=== PATIENT | male | born 1965 | race Caucasian/White ===

== ENCOUNTER → 2018-12-23 | Outpatient (CLI) | payer OTHER ==
[2018-12-23 16:44] LABS: Blood Urea Nitrogen 20 mg/dL (9-20)
--- NOTE | 2018-12-23 22:49 | MR ---
EXAMINATION TYPE: MR lumbar spine wo/w con DATE OF EXAM: 12/23/2018 COMPARISON: NONE HISTORY: Spondylolisthesis, spondylosis, Paresthesia of skin, and history of testicular cancer PER or marissa. Low back pain for several years increasing in severity recently per patient. TECHNIQUE: Multiplanar, multisequence images of the lumbar spine is performed without and with IV contrast, util izing 12 mL intravenous Gadavist FINDINGS: Sagittal images of the lumbar spine show vertebral body heights to appear satisfactory. The re are slight grade 1 retrolisthesis of L3 and L4. There is disc desiccation T12-L1, L1-L2, L3-L4, an d L5-S1 levels. There is moderate disc space narrowing with vacuum disc phenomenon L5-S1 level. There is mild disc space narrowing T12-L1 level. Some multilevel posterior disc herniations are seen on sa gittal images. The conus medullaris is normal in position and signal ending at L1 level. The bone m arrow signal intensity is within normal limits. Mild multilevel anterior spurring is present. No susp icious enhancement is present. Axial images at the T12-L1 level shows mild broad-based disc bulge minimally effacing the anterior th ecal sac, bilateral neural foramina are patent. Axial images at L1-L2 level show mild broad disc bulge minimally effaces the anterior thecal sac, david ateral neural foramina are patent. Axial images at L2-L3 level are felt within normal limits. Axial images at the L3-L4 level show [id number] broad disc bulge minimally effacing the anterio r thecal sac and causing mild bilateral anterior inferior neural foraminal narrowing. Axial images at L4-L5 level are felt within normal limits. Axial images at the L5-S1 level shows mild facet degenerative changes bilaterally. There is central d isc protrusion seen without spinal canal is preserved. Bilateral neural foramina are patent. There are suspected central parapelvic cysts in the left kidney there is suggestion of mild right-ananth ed hydronephrosis. Advise renal ultrasound follow-up to further evaluate. IMPRESSION: 1. Multilevel degenerative changes in the lumbar spine as detailed above most prominent at L3-L4 and L5-S1 levels. 2. Suggestion of left renal parapelvic cysts and mild right-sided hydronephrosis. Advise renal ultras ound follow-up to better evaluate and characterize if this is not known findings.
== END ==
LOC: RADMRIMAIN 16:11
PROVIDERS: ATTEND Physical Medicine & Rehabilitation
DX: M48.061 Spinal stenosis, lumbar region without neurogenic claudication (principal); M47.817 Spondylosis without myelopathy or radiculopathy, lumbosacral region; I10 Essential (primary) hypertension; C62.90 Malignant neoplasm of unspecified testis, unspecified whether descended or undescended
CPT/HCPCS: 82565; 84520; 72158; 36415; A9585

== ENCOUNTER → 2019-01-27 | Outpatient (CLI) | payer OTHER ==
[2019-01-27 17:38] LABS: HCT 42.9 % (39.0-53.0); HGB 14.6 gm/dL (13.0-17.5); MCH 31.1 pg (25.0-35.0); MCHC 34.2 g/dL (31.0-37.0); MCV 91.1 fL (80.0-100.0); Mean Platelet Volume 6.3; Platelet Count 234 k/uL (150-450); RBC 4.71 m/uL (4.30-5.90); RDW 12.4 % (11.5-15.5); WBC 6.5 k/uL (3.8-10.6)
== END | disposition home or self-care (01) ==
LOC: LABWHC1 16:41
PROVIDERS: ATTEND Surgery Vascular Surgery
DX: N13.39 Other hydronephrosis (principal)
CPT/HCPCS: 36415; 84520; 85027

== ENCOUNTER → 2019-08-17 | Outpatient (CLI) | payer OTHER ==
[2019-08-17 16:28] LABS: Appearance,Urine Clear (Clear); Bilirubin,Urine Negative (Negative); Blood,Urine Negative (Negative); Color,Urine Yellow; Glucose,Urine (UA) Negative (Negative); Ketones,Urine Negative (Negative); Leukocyte Esterase,Urine Negative (Negative); Nitrite,Urine Negative (Negative); Protein,Urine Negative (Negative); Specific Gravity,Urine 1.025 (1.001-1.035); Urobilinogen,Urine <2.0 mg/dL (<2.0)
[2019-08-17 17:04] LABS: HCT 42.2 % (39.0-53.0); HGB 14.4 gm/dL (13.0-17.5); MCH 31.4 pg (25.0-35.0); MCHC 34.1 g/dL (31.0-37.0); MCV 91.9 fL (80.0-100.0); Mean Platelet Volume 6.1; Platelet Count 232 k/uL (150-450); RBC 4.59 m/uL (4.30-5.90); RDW 12.3 % (11.5-15.5); WBC 6.7 k/uL (3.8-10.6)
[2019-08-17 23:49] LABS: African American GFR (CKD) 99.8 (60.0-200.0); Albumin 4.4 g/dL (3.80-4.90); Albumin/Globulin Ratio 2.32 (1.60-3.17); Anion Gap 4.1 mmol/L (4.00-12.00); Calcium 9.1 mg/dL (8.7-10.3); Carbon Dioxide 30.9 mmol/L (21.6-31.8); Chol/HDL Ratio 4.32; Globulin 1.9 g/dL (1.6-3.3); Potassium 4.1 mmol/L (3.5-5.5); Total Bilirubin 1.2 mg/dL (0.3-1.2); Total Protein 6.3 g/dL (6.2-8.2)
[2019-08-17 23:58] LABS: T4, Free (Free Thyroxine) 1.2 ng/dL (0.80-1.80)
[2019-08-18 01:51] LABS: Hemoglobin A1C 5.3 % (4.0-6.0)
== END | disposition home or self-care (01) ==
LOC: LABWHC1 15:52
PROVIDERS: ATTEND Physician Assistant
DX: Z00.00 Encounter for general adult medical examination without abnormal findings (principal); R53.83 Other fatigue; Z13.220 Encounter for screening for lipoid disorders; Z83.3 Family history of diabetes mellitus; Z12.5 Encounter for screening for malignant neoplasm of prostate
CPT/HCPCS: 36415; 80053; 80061; 81003; 82306; 83036; 84153; 84439; 84443; 85027

== ENCOUNTER → 2020-03-28 | Day surgery (SDC) | payer OTHER ==
[2020-03-23 16:10] VITALS: BMI 31.6
[~2020-03-28] MED LIST: LACTATED RINGERS 1,000 ML IV SCH; LIDOCAINE 1% (10MG/ML) FOR IV START INTRADERMA ONE; PROPOFOL 10 MG/ML 20 ML VIAL IV ONE
[2020-03-28 09:38] VITALS: TEMP 97.4
--- NOTE | 2020-03-28 10:30 | P.GSHP ---
History of Present Illness H&P Date: 03/28/20 Chief Complaint: elevated Patient here today for colonoscopy. Complains of rectal bleeding. History of rectal bleeding from hemorrhoids in the past. Underwent hemorrhoidectomy. Bleeding is more with activities. History of diverticulitis. Past Medical History Past Medical History: Cancer, Hypertension Additional Past Medical History / Comment(s): HX DIVERTICULITIS, TESTICULAR CANCER (2004), PALPITATIONS., HEMORRHOIDS. History of Any Multi-Drug Resistant Organisms: None Reported Past Surgical History: Hernia Repair Additional Past Surgical History / Comment(s): ORCHIECTOMY, HAND SURGERY, INGUINAL HERNIA AND UMBILICAL HERNIA. Past Anesthesia/Blood Transfusion Reactions: No Reported Reaction Past Psychological History: No Psychological Hx Reported Smoking Status: Never smoker Past Alcohol Use History: Rare Past Drug Use History: None Reported - Past Family History Mother Family Medical History: No Reported History Medications and Allergies Home Medications Medication Instructions Recorded Confirmed Type Aspirin [Adult Low Dose Aspirin EC] 81 mg PO DAILY 03/23/20 03/28/20 History Losartan Potassium [Cozaar] 100 mg PO HS 03/23/20 03/28/20 History Metoprolol 50 tab PO HS 03/23/20 03/28/20 History amLODIPine [Norvasc] 5 mg PO HS 03/23/20 03/28/20 History Hydrochlorothiazide 1 caplet PO DAILY 03/28/20 03/28/20 History Allergies Allergy/AdvReac Type Severity Reaction Status Date / Time amoxicillin Allergy Unknown Unknown Verified 03/28/20 09:33 Sulfa (Sulfonamide Allergy Unknown Unknown Verified 03/28/20 09:33 Antibiotics) Surgical - Exam Vital Signs Temp Pulse Resp BP Pulse Ox 97.4 F L 76 16 120/77 96 03/28/20 09:37 03/28/20 09:37 03/28/20 09:37 03/28/20 09:37 03/28/20 09:37 Physical exam: General: Well-developed, well-nourished HEENT: Normocephalic, sclerae nonicteric Abdomen: Nontender, nondistended Extremities: No edema Neuro: Alert and oriented Assessment and Plan (1) Rectal bleeding Narrative/Plan: Will proceed with colonoscopy and possible hemorrhoidal banding at this time. Risks of bleeding, infection, recurrence reviewed. He understands and wishes to proceed. Current Visit: Yes Status: Acute Code(s): K62.5 - HEMORRHAGE OF ANUS AND RECTUM SNOMED Code(s): 02589888
--- NOTE | 2020-03-28 10:45 | P.PCN ---
Date of Procedure: 03/28/20 Procedure(s) Performed: PREOPERATIVE DIAGNOSIS: Rectal bleeding POSTOPERATIVE DIAGNOSIS: Small internal hemorrhoids, diverticulosis PROCEDURE: Colonoscopy ANESTHESIA: MAC SURGEON: Miguel Diallo M.D. SPECIMENS: None ENDOSCOPIC PROCEDURE: The patient was placed on the endoscopy table in the left decubitus position. The Olympus colonoscope was inserted into the anus and passed under direct visualization to the base of the cecum. The appendiceal orifice was visualized. From that point the scope was slowly withdrawn inspecting all surfaces carefully. There were no neoplastic inflammatory or polypoid lesions throughout the cecum, ascending, transverse, descending, sigmoid and rectum. There was moderate sigmoid diverticulosis noted. Retroflexion of the scope at the anus showed small hemorrhoids. The anoscope was utilized at that time. Small internal hemorrhoids without any evidence of recent or active bleeding was noted. No fissure was seen or fistula. Digital rectal examination was normal. The patient was taken to the recovery room in stable condition per anesthesia guidelines. RECOMMENDATIONS: Increase fiber. Monitor symptoms of bleeding.
[2020-03-28 11:10] VITALS: BP 113/72; PULSE 79; RESP 16
== END ==
LOC: ORWHC2ENDO 09:17
PROVIDERS: ATTEND Surgery
DX: K64.8 Other hemorrhoids (principal); K57.31 Diverticulosis of large intestine without perforation or abscess with bleeding; I10 Essential (primary) hypertension; K21.9 Gastro-esophageal reflux disease without esophagitis; Z87.19 Personal history of other diseases of the digestive system; Z98.890 Other specified postprocedural states; Z85.47 Personal history of malignant neoplasm of testis; Z90.79 Acquired absence of other genital organ(s); Z79.82 Long term (current) use of aspirin; Z79.899 Other long term (current) drug therapy; Z88.0 Allergy status to penicillin; Z88.2 Allergy status to sulfonamides
CPT/HCPCS: 45378; J2704

== ENCOUNTER → 2020-06-20 | Outpatient (CLI) | payer OTHER ==
--- NOTE | 2020-06-20 20:55 | CONS ---
CONSULTATION REASON FOR CONSULTATION: Hypersomnia and poor sleep quality. This is 55-year-old male patient coming in for sleep evaluation with concerns of him having sleep apnea. The patient has a history of hypertension and history of testicular cancer. No other major medical problems or comorbidities. His blood pressure has been difficult to control and currently he is on 3 different blood pressure medications for effective control of his BP. He goes to bed around 10 to 11 p.m. and wakes up at 4:30 a.m. in the morning. He snores and quits breathing as reported by his . He also grinds his teeth. He has occasionally walks in his sleep and he is quite restless in the middle of the night. He wakes up gasping for air. He moves, he snores, he sometimes talks and yells out and he gasps. No recent weight gain or weight loss. He is very tired and sleepy and somnolent during the day. No history of any motor vehicle accidents because of feeling drowsy or sleepy. He was referred to me for sleep apnea evaluation. PAST MEDICAL HISTORY: Hypertension, history of testicular cancer. PAST SURGICAL HISTORY: Past surgical history includes orchiectomy, hernia repair x2 involving groin and umbilicus, bilateral carpal tunnel release, and facial surgery for forehead and nasal injury. DRUG ALLERGIES: AMPICILLIN AND SULFA. OUTPATIENT MEDICATION LIST: Outpatient medication list includes Marguerite aspirin, metoprolol, Norvasc and losartan. SOCIAL HISTORY: Nonsmoker. No history of alcoholism. No history of IV drugs. The patient works injection molding. FAMILY HISTORY: Coronary artery disease and bypass and CVA and pacemaker insertion in his father. Cleft palate in his daughter, who ended up passing away from an underlying congenital syndrome. Mother was healthy. Sister has obstructive sleep apnea. REVIEW OF SYSTEMS: Fourteen-point review of systems was done. Positive findings are all mentioned above in the history of present illness. PHYSICAL EXAMINATION: BP is 129/81, pulse is 74, respirations 16, temperature 98.1. Height is 6 feet 4 inches, weight is 257, and BMI is 31. Neck size is 18-1/4 inches. Montrose score is 17. GENERAL APPEARANCE: Calm, comfortable. No acute distress. HEAD: Atraumatic, normocephalic. NECK: Supple. No JVD. No goiter or neck masses. Mallampati class IV. LUNGS: Diminished; otherwise clear. HEART: Heart sounds are regular rate and rhythm. Normal S1, S2. No S3, S4. No murmurs. ABDOMEN: Soft, nontender. No organomegaly. EXTREMITIES: No edema. No cyanosis or clubbing. NEUROLOGIC: Awake and alert x3. There is no focal neurological deficit. IMPRESSION: 1. Chronic hypersomnia. Montrose score of 17. Rule out underlying obstructive sleep apnea. 2. Hypertension, refractory, currently well controlled on 3 different antihypertensive medications. 3. Loud snoring. 4. Remote history of testicular cancer. PLAN: Proceed with a home sleep study to evaluate this patient for obstructive sleep apnea and decide on treatment accordingly. Will continue to follow. MMODL / IJN: [id number] /
== END | disposition home or self-care (01) ==
LOC: SLEEP 15:20
PROVIDERS: ATTEND Internal Medicine Critical Care Medicine
DX: G47.10 Hypersomnia, unspecified (principal); I10 Essential (primary) hypertension; Z85.47 Personal history of malignant neoplasm of testis
CPT/HCPCS: 99211

== ENCOUNTER → 2020-10-24 | Outpatient (CLI) | payer OTHER ==
--- NOTE | 2020-10-24 12:54 | PN ---
PROGRESS NOTE This is a 55-year-old male patient coming in for a compliance check regarding obstructive sleep apnea. The diagnosis patient having DIAMOND, moderate to severe with an AHI of 26. The patient was given initially a nose mask and later on he was given a full face mask and currently is using a Double Doodskel large size full-face mask. Doing well. He is having issues with the leak. Initially he was having difficulties in tolerating the treatment and currently he is becoming more and more compliant. Based on a 30-day compliance data, the patient has been averaging around 4.7 hours of CPAP use and his CPAP use for more than 4 hours . His average pressure delivered by the machine is at 9.3 cm and the leak is in order of 34 L/minute and his AHI is down to 1.6. His York score used to be 17 and currently is down to 9. He has an APAP at a minimum pressure of 5 and a maximum pressure of 13. REVIEW OF SYSTEMS: Fourteen-point review of system was done and positive findings are mentioned history of present illness. PHYSICAL EXAMINATION: VITAL SIGNS: BP is 153/87, pulse 62, respirations 16, temperature 98.3, saturation 97% on room air. Weight is 264. GENERAL APPEARANCE: Obese, calm, comfortable. HEAD: Atraumatic, normocephalic. NECK: Supple. Mallampati class 4. There is no goiter or neck masses. LUNGS: Clear to auscultation. HEART: Sounds are regular rate and rhythm. Normal S1, S2. No S3, S4. No murmurs. ABDOMEN: Soft, nontender. No organomegaly. EXTREMITIES: No edema. No cyanosis or clubbing. IMPRESSION: 1. Obstructive sleep apnea, moderate severe AHI of 26. 2. Chronic hypersomnia, improved with CPAP therapy. 3. Hypertension. PLAN: 1. Tight blood pressure control. 2. Continue CPAP therapy in the same pressure setting, which is an APAP minimum pressure of 5 and maximum pressure of 13. 3. Offer the patient a DreamWear full-face mask under the nose. 4. Offer the patient climate line. 5. Continue treatment and the patient is benefitting from the treatment and she is expected to be more compliant over the next few months. Treatment is successful. We will continue to follow. MMODL / IJN: [id number] /
== END | disposition home or self-care (01) ==
LOC: SLEEP 10:35
PROVIDERS: ATTEND Internal Medicine Critical Care Medicine
DX: G47.33 Obstructive sleep apnea (adult) (pediatric) (principal); I10 Essential (primary) hypertension; Z99.89 Dependence on other enabling machines and devices

== ENCOUNTER → 2020-12-19 | Outpatient (CLI) | payer OTHER ==
[2020-12-19 10:50] LABS: HCT 43.3 % (39.0-53.0); HGB 14.7 gm/dL (13.0-17.5); MCH 31.4 pg (25.0-35.0); MCV 92.3 fL (80.0-100.0); Mean Platelet Volume 6.4; Platelet Count 239 k/uL (150-450); RBC 4.69 m/uL (4.30-5.90); WBC 6.9 k/uL (3.8-10.6)
[2020-12-19 11:08] LABS: African American GFR (CKD) >90 (>60 ml/min/1.73 sqM); Anion Gap 6 mmol/L; Blood Urea Nitrogen 22 mg/dL (9-20); Calcium 9.4 mg/dL (8.4-10.2); Carbon Dioxide 28 mmol/L (22-30); Chloride 106 mmol/L (98-107); Glucose 123 mg/dL (74-99); Non-African American GFR(CKD) >90 (>60 ml/min/1.73 sqM); Potassium 4.5 mmol/L (3.5-5.1); Sodium 140 mmol/L (137-145)
[2020-12-19 11:22] LABS: T4, Free (Free Thyroxine) 1.15 ng/dL (0.78-2.19)
--- NOTE | 2020-12-19 12:30 | US ---
EXAMINATION TYPE: US renal artery duplex complete DATE OF EXAM: 12/19/2020 COMPARISON: NONE CLINICAL HISTORY: I10 Hypertension. HTN for 2 years MEASUREMENTS: RENAL SIZE: Rt Kidney: 12.8 x 5.9 x 5.5cm Lt Kidney: 13.1 x 6.6 x 5.6cm RESISTANCE INDEX Right: 0.55 Left: 0.64 RA/AO RATIO (< 3.5 ) Right: 2.3 Left: 2.4 RA VELOCITY ( < 180 cm/s) Right: 167.3cm/s Left: 175.2cm/s Technical limitations due to large amount of overlying bowel content. No evidence of renal artery s tenosis as visualized. aorta appears unremarkable. dilated renal pyramids bilateral kidneys. Suboptimal due to overlying bowel gas per technologist. Visualized aorta shows no aneurysm seen throu gh the bifurcation. Kidneys are symmetric and within normal limits in size. Cortical medullary differ entiation maintained. No hydronephrosis. Visualized portion of renal artery show satisfactory velocit y and phasicity. No suspicious elevated velocity or abnormal ratio noted. IMPRESSION: Suboptimal study without hemodynamically significant focal renal artery stenosis clearly identified.
== END ==
LOC: RADUSWWP 08:50
PROVIDERS: ATTEND Internal Medicine Interventional Cardiology
DX: I10 Essential (primary) hypertension (principal)
CPT/HCPCS: 80048; 84439; 84443; 85027; 93975

== ENCOUNTER → 2021-11-29 | Outpatient (CLI) | payer OTHER ==
[2021-11-30 03:05] LABS: T4, Free (Free Thyroxine) 1.26 ng/dL (0.800-1.800)
[2021-11-30 13:13] LABS: C-ANCA <1:20 Titer (<1:20)
== END | disposition home or self-care (01) ==
LOC: LABWHC1 14:22
PROVIDERS: ATTEND Otolaryngology
DX: E03.9 Hypothyroidism, unspecified (principal)
CPT/HCPCS: 36415; 84439; 84443; 86038; 86255; 86376

== ENCOUNTER → 2022-01-24 | Outpatient (CLI) | payer OTHER ==
[2022-01-24 22:45] LABS: Basophils # (A) 0.06 X 10*3/uL (0.00-0.10); Basophils % (A) 1.4 %; Eosinophils # (A) 0.19 X 10*3/uL (0.04-0.35); Eosinophils % (A) 4.4 %; HCT 40.2 % (39.6-50.0); HGB 13.6 g/dL (13.0-17.0); Immature Grans, Automated 0.2 %; Lymphocytes # (A) 1.77 X 10*3/uL (0.90-5.00); Lymphocytes % (A) 40.9 %; MCH 30.9 pg (27.0-32.0); MCHC 33.8 g/dL (32.0-37.0); MCV 91.4 fL (80.0-97.0); Mean Platelet Volume 9.8 fL (9.5-12.2); Monocytes # (A) 0.35 X 10*3/uL (0.20-1.00); Monocytes % (A) 8.1 %; NRBC Per 100 WBC 0 /100 WBCS (0.0-0.0); Neutrophils # (A) 1.95 X 10*3/uL (1.80-7.70); Platelet Count 226 X 10*3/uL (140-440); WBC 4.33 X 10*3/uL (4.50-10.00)
[2022-01-24 23:03] LABS: African American GFR (CKD) 113.1 (60.0-200.0); Albumin 4.1 g/dL (3.8-4.9); Albumin/Globulin Ratio 1.66 (1.60-3.17); BUN/Creat Ratio 18.38 Ratio (12.00-20.00); Blood Urea Nitrogen 16.1 mg/dL (9.0-27.0); Calcium 8.7 mg/dL (8.7-10.3); Carbon Dioxide 21.6 mmol/L (20.0-27.5); Globulin 2.5 g/dL (1.6-3.3); Non-African American GFR(CKD) 97.6 (60.0-200.0); Potassium 3.6 mmol/L (3.5-5.5); T4, Free (Free Thyroxine) 1.34 ng/dL (0.800-1.800); Total Bilirubin 0.3 mg/dL (0.30-1.20); Total Protein 6.6 g/dL (6.2-8.2)
[2022-01-24 23:09] LABS: Thyroid Peroxidase Antibodies 53.7 U/mL (0.0-33.0)
== END | disposition home or self-care (01) ==
LOC: LABWHC1 14:48
PROVIDERS: ATTEND Family Medicine
DX: E06.9 Thyroiditis, unspecified (principal); R53.83 Other fatigue
CPT/HCPCS: 36415; 80053; 82306; 84403; 84432; 84439; 84443; 84481; 85025; 86376

== ENCOUNTER 2022-01-28 14:14 | Inpatient (IN) | payer OTHER ==
[2022-01-28 14:46] LABS: Basophils # (A) 0.1 k/uL (0-0.2); Basophils % (A) 1 %; Eosinophils # (A) 0.2 k/uL (0-0.7); Eosinophils % (A) 3 %; HCT 43.7 % (39.0-53.0); HGB 14.7 gm/dL (13.0-17.5); Lymphocytes # (A) 1.4 k/uL (1.0-4.8); Lymphocytes % (A) 25 %; MCH 31.2 pg (25.0-35.0); MCHC 33.8 g/dL (31.0-37.0); MCV 92.5 fL (80.0-100.0); Monocytes # (A) 0.3 k/uL (0-1.0); Monocytes % (A) 5 %; Neutrophils # (A) 3.5 k/uL (1.3-7.7); Neutrophils % (A) 64 %; Platelet Count 260 k/uL (150-450); RBC 4.72 m/uL (4.30-5.90); RDW 12.2 % (11.5-15.5); WBC 5.5 k/uL (3.8-10.6)
[2022-01-28 15:00] LABS: INR 0.9 (<1.2); Partial Thromboplastin Time 24.2 sec (22.0-30.0); Prothrombin Time 10.4 sec (9.0-12.0)
--- NOTE | 2022-01-28 15:06 | XR ---
EXAMINATION TYPE: XR chest 2V DATE OF EXAM: 01/28/2022 COMPARISON: NONE HISTORY: Pain and fall TECHNIQUE: Frontal and lateral views of the chest are obtained. FINDINGS: Questionable minimal infiltration in the left lower lung zone with linear atelectasis. Unremarkable l ungs otherwise. No sizable pleural effusion or definite pneumothorax. No cardiomegaly. No gross aggressive bone lesio n. IMPRESSION: As above.
[2022-01-28 15:08] LABS: Albumin 4.2 g/dL (3.5-5.0); Calcium 8.9 mg/dL (8.4-10.2); Magnesium 1.8 mg/dL (1.6-2.3); Potassium 3.9 mmol/L (3.5-5.1); Total Bilirubin 0.9 mg/dL (0.2-1.3); Total Protein 7.1 g/dL (6.3-8.2)
--- NOTE | 2022-01-28 16:03 | ED ---
General Adult HPI - General Chief complaint: Chest Pain Stated complaint: Chest pain/left arm numbness/sob Time Seen by Provider: 01/28/22 15:45 Source: patient, RN notes reviewed, old records reviewed Mode of arrival: wheelchair Limitations: no limitations - History of Present Illness Initial comments: This is a 56-year-old male who presents to the emergency department with past history of a celiac artery dissection years ago. Patient states today he was at home and he had the feeling he might pass out so he went down to his knees and started because coming diaphoretic and had chest tightness. Patient thought his heart might is stopped he was so close to passing out. Patient didn't complain difficulty breathing or shortness of breath. Patient denies headache patient denies any numbness weakness. Patient denies any fever chills or cough patient denies abdominal pain patient denies nausea vomiting diarrhea. - Related Data Home Medications Medication Instructions Recorded Confirmed Aspirin [Adult Low Dose Aspirin EC] 81 mg PO DAILY 03/23/20 03/28/20 Losartan Potassium [Cozaar] 100 mg PO HS 03/23/20 03/28/20 Metoprolol 50 tab PO HS 03/23/20 03/28/20 amLODIPine [Norvasc] 5 mg PO HS 03/23/20 03/28/20 Hydrochlorothiazide 1 caplet PO DAILY 03/28/20 03/28/20 [hydroCHLOROthiazide] Allergies Allergy/AdvReac Type Severity Reaction Status Date / Time amoxicillin Allergy Unknown Unknown Verified 01/28/22 14:22 Sulfa (Sulfonamide Allergy Unknown Unknown Verified 01/28/22 14:22 Antibiotics) Review of Systems ROS Statement: Those systems with pertinent positive or pertinent negative responses have been documented in the HPI. ROS Other: All systems not noted in ROS Statement are negative. Past Medical History Past Medical History: Cancer, Hypertension Additional Past Medical History / Comment(s): HX DIVERTICULITIS, TESTICULAR CANCER (2004), PALPITATIONS., HEMORRHOIDS. CELIAC ARTERY DISSECTION History of Any Multi-Drug Resistant Organisms: None Reported Past Surgical History: Hernia Repair Additional Past Surgical History / Comment(s): ORCHIECTOMY, HAND SURGERY, INGUINAL HERNIA AND UMBILICAL HERNIA. Past Anesthesia/Blood Transfusion Reactions: No Reported Reaction Past Psychological History: No Psychological Hx Reported Smoking Status: Never smoker Past Alcohol Use History: Rare Past Drug Use History: None Reported - Past Family History Mother Family Medical History: No Reported History General Exam - General Exam Comments Initial Comments: GENERAL: Patient is well-developed and well-nourished. Patient is nontoxic and well- hydrated and is in mild to distress. ENT: Neck is soft and supple. No significant lymphadenopathy is noted. Oropharynx is clear. Moist mucous membranes. Neck has full range of motion without eliciting any pain. EYES: The sclera were anicteric and conjunctiva were pink and moist. Extraocular movements were intact and pupils were equal round and reactive to light. Eyelids were unremarkable. PULMONARY: Unlabored respirations. Good breath sounds bilaterally. No audible rales rhonchi or wheezing was noted. CARDIOVASCULAR: There is a regular rate and rhythm without any murmurs gallops or rubs. ABDOMEN: Soft and nontender with normal bowel sounds. SKIN: Skin is clear with no lesions or rashes and otherwise unremarkable. NEUROLOGIC: Patient is alert and oriented x3. Cranial nerves II through XII are grossly intact. Motor and sensory are also intact. Normal speech, volume and content. Symmetrical smile. MUSCULOSKELETAL: Normal extremities with adequate strength and full range of motion. LYMPHATICS: No significant lymphadenopathy is noted PSYCHIATRIC: Normal psychiatric evaluation. Limitations: no limitations Course Vital Signs 01/28/22 01/28/22 14:19 16:03 Temperature 97.9 F Pulse Rate 95 81 Respiratory 18 18 Rate Blood Pressure 114/76 128/79 O2 Sat by Pulse 95 96 Oximetry Procedures - [facility] Protocol (Time Out) Nurse: Reva Be Medical Decision Making - Medical Decision Making EKG shows sinus rhythm at 95 bpm MT interval is 184 QRS is 98 QT interval 370 QTC is 423. Patient's EKG shows no ST segment elevation or depression. CT showed no evidence for PE or aortic dissection. Patient was feeling much better and he was at his baseline. I spoke with Dr. Chau she agreed to admit the patient admitted the patient wrote admitting orders. consult to cardiology - Lab Data Result diagrams: 01/28/22 14:36 01/28/22 14:36 Lab Results 01/28/22 01/28/22 01/28/22 Range/Units 14:36 14:36 14:36 WBC 5.5 (3.8-10.6) k/uL RBC 4.72 (4.30-5.90) m/uL Hgb 14.7 (13.0-17.5) gm/dL Hct 43.7 (39.0-53.0) % MCV 92.5 (80.0-100.0) fL MCH 31.2 (25.0-35.0) pg MCHC 33.8 (31.0-37.0) g/dL RDW 12.2 (11.5-15.5) % Plt Count 260 (150-450) k/uL MPV 7.0 Neutrophils % 64 % Lymphocytes % 25 % Monocytes % 5 % Eosinophils % 3 % Basophils % 1 % Neutrophils # 3.5 (1.3-7.7) k/uL Lymphocytes # 1.4 (1.0-4.8) k/uL Monocytes # 0.3 (0-1.0) k/uL Eosinophils # 0.2 (0-0.7) k/uL Basophils # 0.1 (0-0.2) k/uL PT 10.4 (9.0-12.0) sec INR 0.9 (<1.2) APTT 24.2 (22.0-30.0) sec D-Dimer 1.22 H (<0.60) mg/L FEU Sodium 139 (137-145) mmol/L Potassium 3.9 (3.5-5.1) mmol/L Chloride 106 (98-107) mmol/L Carbon Dioxide 23 (22-30) mmol/L Anion Gap 10 mmol/L BUN 17 (9-20) mg/dL Creatinine 1.08 (0.66-1.25) mg/dL Est GFR (CKD-EPI)AfAm 89 (>60 ml/min/1.73 sqM) Est GFR (CKD-EPI)NonAf 77 (>60 ml/min/1.73 sqM) Glucose 151 H (74-99) mg/dL Calcium 8.9 (8.4-10.2) mg/dL Magnesium 1.8 (1.6-2.3) mg/dL Total Bilirubin 0.9 (0.2-1.3) mg/dL AST 41 (17-59) U/L ALT 54 H (4-49) U/L Alkaline Phosphatase 71 (38-126) U/L Troponin I (0.000-0.034) ng/mL Total Protein 7.1 (6.3-8.2) g/dL Albumin 4.2 (3.5-5.0) g/dL 01/28/22 Range/Units 14:36 WBC (3.8-10.6) k/uL RBC (4.30-5.90) m/uL Hgb (13.0-17.5) gm/dL Hct (39.0-53.0) % MCV (80.0-100.0) fL MCH (25.0-35.0) pg MCHC (31.0-37.0) g/dL RDW (11.5-15.5) % Plt Count (150-450) k/uL MPV Neutrophils % % Lymphocytes % % Monocytes % % Eosinophils % % Basophils % % Neutrophils # (1.3-7.7) k/uL Lymphocytes # (1.0-4.8) k/uL Monocytes # (0-1.0) k/uL Eosinophils # (0-0.7) k/uL Basophils # (0-0.2) k/uL PT (9.0-12.0) sec INR (<1.2) APTT (22.0-30.0) sec D-Dimer (<0.60) mg/L FEU Sodium (137-145) mmol/L Potassium (3.5-5.1) mmol/L Chloride (98-107) mmol/L Carbon Dioxide (22-30) mmol/L Anion Gap mmol/L BUN (9-20) mg/dL Creatinine (0.66-1.25) mg/dL Est GFR (CKD-EPI)AfAm (>60 ml/min/1.73 sqM) Est GFR (CKD-EPI)NonAf (>60 ml/min/1.73 sqM) Glucose (74-99) mg/dL Calcium (8.4-10.2) mg/dL Magnesium (1.6-2.3) mg/dL Total Bilirubin (0.2-1.3) mg/dL AST (17-59) U/L ALT (4-49) U/L Alkaline Phosphatase (38-126) U/L Troponin I 0.016 (0.000-0.034) ng/mL Total Protein (6.3-8.2) g/dL Albumin (3.5-5.0) g/dL Critical Care Time Critical Care Time: Yes Disposition Clinical Impression: Near syncope, Chest pain Disposition: ADMITTED IP TO THIS HOSP Referrals: Maciel De Jesus MD [Primary Care Provider] - 1-2 days Time of Disposition: 18:44
--- NOTE | 2022-01-28 17:37 | CT ---
EXAMINATION TYPE: CT angio thor/abd pel aorta. CT DLP: 2634.8 mGycm, Automated exposure control for dose reduction was used. DATE OF EXAM: 01/28/2022 5:14 PM COMPARISON: None. CLINICAL INDICATION:Male, 56 years old with history of Chest pain elevated d-dime, Chest pain, elevat ed d-dimer. Hx celiac artery dissection. TECHNIQUE: Dissection protocol: Multiple axial CT images of the chest, abdomen, and pelvis were obtai ld prior and to the administration of IV contrast. 3-D reformats and maximum intensity projection fo rmat were performed on a separate workstation. Then the abdomen was scanned after administration of 8 0 cc of Isovue 370 IV contrast. FINDINGS: ARTERIAL VASCULATURE: The thoracic aorta is normal in course and caliber. There is no evidence of aor tic dissection, aneurysm or acute aortic injury. Great arch vessels patent and normal in course and c aliber. There is a celiac artery dissection as given provided history extending just past the ostium/ origin extending approximately 19 mm. Scattered atherosclerosis disease of the visualized arterial va sculature. PULMONARY ARTERIAL VASCULATURE: Normal caliber, no evidence of central pulmonary embolism. VENOUS SYSTEM: Unremarkable. Lungs/pleura: There is streaky atelectasis within the lung bases. There are small intrafissural lymph nodes along the minor fissure. Streaky atelectasis within the lingula is present. Heart: Within normal limits. Mediastinum: No gross evidence of adenopathy. Lower Neck: No significant findings. Abdomen: Liver: 24 mm cyst. Flash filling focus in the left hepatic lobe measuring 4 mm likely representing fl jasper filling hemangioma versus shunting phenomenon. Gallbladder and Bile ducts: Unremarkable. Pancreas: Unremarkable. Spleen: Unremarkable. Adrenal glands: Unremarkable. Kidneys and Ureters: Unremarkable. No hydronephrosis. Stomach and Bowel: Scattered clonic diverticula are present. No evidence of bowel obstruction. Peritoneum: No evidence of pneumoperitoneum, free fluid, or adenopathy. Bladder: Unremarkable. Reproductive: Slight fat stranding changes around the seminal vesicles and prostate gland. There is d esiccation of the prostate gland. Abdominal wall/soft tissues: Left fat filled inguinal hernia. Musculoskeletal: The osseous structures appear intact. Bilateral spondylolysis of L5. IMPRESSION: 1. Redemonstration of celiac artery dissection extending from just past the ostium and extending 19 m m in length. 2. Mild fat stranding changes around seminal vesicles and prostate correlate for prostatitis. 3. 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 4. Colonic diverticulosis.
[2022-01-28] MEDS ORDERED: NITROGLYCERIN SL TABS 0.4 MG TAB SUBLINGUAL PRN (18:45)
[2022-01-28 21:15] VITALS: RESP 18
[2022-01-28] MEDS ORDERED: HEPARIN SODIUM 1,000 UN/ML (10ML VL) IV ONE (22:04)
--- NOTE | 2022-01-28 22:20 | P.HPIM ---
History of Present Illness H&P Date: 01/28/22 Chief Complaint: Near syncope, chest pain 56-year-old male with history of hypertension, Larisa's thyroiditis, borderline diabetes, obesity Patient comes in after sudden onset of an episode of near syncope he was with his son getting ready to go out when suddenly felt very weak and almost passing out got him down to his knees felt some chest pressure across his chest with heavy breathing and excessive diaphoresis and palpitations it was short-lived episode and then he felt better after that he denies any cardiac history however many years ago when he was under a lot of stress he remembers an episode where his heartrate was beating superfast about 200 and was told that was stress related otherwise patient is denying any associated nausea vomiting denies any associated fevers or chills or any upper respiratory infection symptoms. He denies any cardiac history denies any history of arrhythmia otherwise. He takes daily aspirin and takes blood pressure medications Currently is chest pain-free described the chest pain as pressure-like across his chest improved on its own Initial workup in the ED showed initial troponin negative and then became elevated. 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 There was also some fat stranding around the prostate however patient denies any urinary symptoms or pelvic pain Patient denies tobacco smoking recreational drugs or heavy alcohol. He reports that his dad had history of CABG in his early 60s and pacemaker in his early 50s Review of Systems Pertinent positives as noted in HPI. All other systems were reviewed and are negative Past Medical History Past Medical History: Cancer, Hypertension Additional Past Medical History / Comment(s): HX DIVERTICULITIS, TESTICULAR CANCER (2004), PALPITATIONS., HEMORRHOIDS. CELIAC ARTERY DISSECTION History of Any Multi-Drug Resistant Organisms: None Reported Past Surgical History: Hernia Repair Additional Past Surgical History / Comment(s): ORCHIECTOMY, HAND SURGERY, INGUINAL HERNIA AND UMBILICAL HERNIA. Past Anesthesia/Blood Transfusion Reactions: No Reported Reaction Past Psychological History: No Psychological Hx Reported Smoking Status: Never smoker Past Alcohol Use History: Rare Past Drug Use History: None Reported - Past Family History Mother Family Medical History: No Reported History Medications and Allergies Home Medications Medication Instructions Recorded Confirmed Type Aspirin [Adult Low Dose Aspirin EC] 81 mg PO DAILY 03/23/20 01/28/22 History Losartan Potassium [Cozaar] 100 mg PO HS 03/23/20 01/28/22 History Carvedilol [Coreg] 6.25 mg PO BID 01/28/22 01/28/22 History Cholecalciferol [Vitamin D3 (25 50 mcg PO DAILY 01/28/22 01/28/22 History Mcg = 1000 Iu)] Cinnamon Bark [Cinnamon] 1,000 mg PO BID 01/28/22 01/28/22 History Escitalopram [Lexapro] 5 mg PO HS 01/28/22 01/28/22 History Mupirocin 2% Oint [Bactroban 2% 1 applic NASAL BID PRN 01/28/22 01/28/22 History Oint] Omeprazole 40 mg PO DAILY 01/28/22 01/28/22 History QUEtiapine [SEROquel] 12.5 mg PO HS 01/28/22 01/28/22 History Spironolactone [Aldactone] 25 mg PO BID 01/28/22 01/28/22 History amLODIPine [Norvasc] 10 mg PO DAILY 01/28/22 01/28/22 History rOPINIRole HCL [Requip] 0.5 mg PO BID 01/28/22 01/28/22 History Allergies Allergy/AdvReac Type Severity Reaction Status Date / Time amoxicillin Allergy Unknown Unknown Verified 01/28/22 18:45 Sulfa (Sulfonamide Allergy Unknown Unknown Verified 01/28/22 18:45 Antibiotics) Physical Exam Vitals: Vital Signs Temp Pulse Resp BP Pulse Ox 01/28/22 19:00 62 16 144/95 97 01/28/22 16:03 81 18 128/79 96 01/28/22 14:19 97.9 F 95 18 114/76 95 Intake and Output 01/28/22 01/28/22 01/28/22 06:59 14:59 22:59 Other: Weight 120.202 kg Constitutional: No acute distress, conversant, pleasant Eyes: Anicteric sclerae, moist conjunctiva, Pupils equal round reactive to light ENMT: NC/AT Oropharynx clear, no erythema, or exudates Neck: Supple, FROM, no masses, or JVD No carotid bruits No thyromegaly Lungs: Clear to auscultation Clear to percussion Normal respiratory effort, no accessory muscle use Cardiovascular: Heart regular in rate and rhythm, No murmurs, gallops, or rubs No peripheral edema Abdominal: Soft Nontender, no guarding, rebound or rigidity Abdomen moving with respiration Normoactive bowel sounds No hepatomegaly, No splenomegaly No palpable mass No abdominal wall hernia noted Skin: Normal temperature, tone, texture, turgor No induration No subcutaneous nodules No rash, lesions No ulcers Extremities: No digital cyanosis No clubbing Pedal pulses intact and symmetrical Radial pulses intact and symmetrical No calf tenderness Psychiatric: Alert and oriented to person, place and time Appropriate affect fair judgement Neuro Muscles Strength 5/5 in all 4 extremities Sensation to light touch grossly present throughout Cranial nerves II-XII grossly intact No focal sensory deficits Lymphatics: no palpable cervical or supraclavicular , or inguinal lymph nodes Results CBC & Chem 7: 01/28/22 14:36 01/28/22 14:36 Labs: Abnormal Lab Results - Last 24 Hours (Table) 01/28/22 01/28/22 Range/Units 14:36 14:36 D-Dimer 1.22 H (<0.60) mg/L FEU Glucose 151 H (74-99) mg/dL ALT 54 H (4-49) U/L Assessment and Plan Assessment: nSTEMI with atypical chest pain Near syncope Hypertension Borderline diabetes Plan Trend troponins Cardiac monitoring Aspirin nitro statin Cardiology consult Monitor vital signs Heparin drip, patient heart score is moderate Check A1c Check TSH Check lipid profile History of Larisa's thyroiditis check TSH History of celiac artery dissection, continue outpatient follow-up PPI for GI prophylaxis DVT prophylaxis on heparin drip for ACS Anticipated length of stay more than 2 midnights
[2022-01-28] MEDS: carvediloL 6.25 MG TAB PO SCH ×2 (22:46→22:54)
[2022-01-28] MEDS: HEPARIN SOD,PORK IN 0.45% NACL 25,000 UNIT in 0.45% NACL 1 250ML.BAG IV SCH (22:46)
[2022-01-28] MEDS: SPIRONOLACTONE 25 MG TAB PO SCH ×2 (22:47→22:56)
[2022-01-28] MEDS: QUEtiapine 25 MG TAB PO SCH (22:47)
[2022-01-28] MEDS: ATORVASTATIN 40 MG TAB PO SCH ×2 (22:47→22:56)
[2022-01-28] MEDS: LOSARTAN 50 MG TAB PO SCH ×2 (22:47→22:55)
[2022-01-28] MEDS: ESCITALOPRAM 5 MG TAB PO SCH (22:55)
[2022-01-29] MEDS: NITROGLYCERIN OINT 1 INCH/GM PACKET TOPICAL SCH ×4 (03:43→18:32)
[2022-01-29 03:54] LABS: Basophils # (A) 0.1 k/uL (0-0.2); Basophils % (A) 1 %; Eosinophils # (A) 0.2 k/uL (0-0.7); Eosinophils % (A) 4 %; HCT 43.6 % (39.0-53.0); HGB 14.4 gm/dL (13.0-17.5); Lymphocytes # (A) 2.5 k/uL (1.0-4.8); Lymphocytes % (A) 41 %; MCH 31.2 pg (25.0-35.0); MCV 94.5 fL (80.0-100.0); Monocytes # (A) 0.4 k/uL (0-1.0); Monocytes % (A) 7 %; Neutrophils # (A) 2.6 k/uL (1.3-7.7); Neutrophils % (A) 44 %; Platelet Count 238 k/uL (150-450); RBC 4.62 m/uL (4.30-5.90); RDW 12.3 % (11.5-15.5)
[2022-01-29 04:19] LABS: INR 0.9 (<1.2); Partial Thromboplastin Time 30.2 sec (22.0-30.0); Prothrombin Time 10.2 sec (9.0-12.0)
[2022-01-29] MEDS: HEPARIN SODIUM 1,000 UN/ML (10ML VL) IV PRN ×3 (04:31→21:12)
[2022-01-29] MEDS: PANTOPRAZOLE 40 MG TABLET PO SCH (06:25)
[2022-01-29] MEDS: ASPIRIN 81 MG PO SCH (08:39)
[2022-01-29] MEDS: SPIRONOLACTONE 25 MG TAB PO SCH ×2 (08:39→21:11)
[2022-01-29] MEDS: amLODIPine 10 MG TAB PO SCH (08:40)
[2022-01-29] MEDS: carvediloL 6.25 MG TAB PO SCH ×2 (08:40→21:09)
[2022-01-29] MEDS ORDERED: ASPIRIN 325 MG TAB PO SCH (09:00)
[2022-01-29 09:23] LABS: Chol/HDL Ratio 5.28 Ratio; LDL Cholesterol,Calculated 61.1 mg/dL (0.0-131.0)
[2022-01-29] MEDS ORDERED: ALPRAZolam 0.5 MG TAB PO PRN (10:20)
[2022-01-29] MEDS ORDERED: ALPRAZolam 0.25 MG TAB PO PRN (10:20)
[2022-01-29] MEDS ORDERED: NITROGLYCERIN SL TABS 0.4 MG TAB SUBLINGUAL PRN (10:20)
[2022-01-29] MEDS: HEPARIN SOD,PORK IN 0.45% NACL 25,000 UNIT in 0.45% NACL 1 250ML.BAG IV SCH ×2 (12:47→18:19)
--- NOTE | 2022-01-29 13:43 | P.CRDCN ---
History of Present Illness Consult date: 01/29/22 History of present illness: HISTORY OF PRESENT ILLNESS: This is a 56-year-old male with a past medical history significant for hypertension, sleep apnea, and family history of CAD. Patient follows in the office with Dr. Jacobsen. We have been asked to see the patient in consultation for chest pain. Patient examined at the bedside. Patient presented to the hospital with a chief complaint of chest pressure and heaviness that began yesterday. He reported feeling diaphoretic. He also reported feeling palpitations. He denied any shortness of breath. He denied any radiation of the pain. He reports feeling like he might pass out at home but he did not have any syncopal episodes. He states that he took an aspirin at home. He also reports checking his blood pressure at home which was 80/60 which the patient states is very abnormal for him as he has had a long-standing history of hypertension. The patient was started on IV heparin. The time of examination, the patient denies any chest pain or pressure. * EKG reveals sinus mechanism with no signs of acute ischemia * Chest xray questionable minimal infiltrate in the left lower lung zone with linear atelectasis * CT: Negative for pulmonary embolism * Laboratory data: WBC 6.0. Hemoglobin 14.4. Platelet count 238. sodium 139. Potassium 3.9. BUN 17. Creatinine 1.08. Troponin 0.016. 0.291. 0.260. * Current home cardiac medications include aspirin 81 mg daily, losartan 100 mg at night, amlodipine 10 mg daily, carvedilol 6.25 mg twice a day, Aldactone 25 mg twice a day * patient underwent stress test in December 2019 which was negative for ischemia * Most recent echocardiogram completed in December 2019 at the cardiology office revealed normal ejection fraction, moderate LVH, mild AR, mild TR, mild MR REVIEW OF SYSTEMS: At the time of my exam: CONSTITUTIONAL: Denies fever or chills. HEENT: Denies blurred vision, vision changes, or eye pain. Denies hemoptysis CARDIOVASCULAR: Denies chest pain. Denies orthopnea. Denies PND. Denies palpitations RESPIRATORY: Denies shortness of breath. GASTROINTESTINAL: Denies abdominal pain. Denies nausea or vomiting. HEMATOLOGIC: Denies bleeding disorders. GENITOURINARY: Denies any blood in urine. SKIN: Denies pruitis. Denies rash. PHYSICAL EXAM: VITAL SIGNS: Reviewed. GENERAL: Well-developed in no acute distress. HEENT: Head is normocephalic. Pupils are equal, round. Sclerae anicteric. Mucous membranes of the mouth are moist. Neck supple. No JVD or thyromegaly LUNGS: Respirations even and unlabored. Lungs essentially clear to auscultation bilaterally. HEART: Regular rate and rhythm. S1 and S2 heard. ABDOMEN: Soft. Nondistended. Nontender. EXTREMITIES: Normal range of motion. No clubbing or cyanosis. Peripheral pulses intact. No lower extremity edema NEUROLOGIC: Awake and alert. Oriented x 3. ASSESSMENT: Near syncope Chest pain Non-STEMI Hypertension History of celiac artery dissection History of Larisa's PLAN: Obtain 2-D echo to assess cardiac structure and function Resume home cardiac medications including aspirin, losartan, amlodipine, carvedilol, and Aldactone Atorvastatin 40 mg at night added per internal medicine Continue IV heparin NPO at midnight Patient to undergo cardiac catheterization tomorrow with Dr. Tidwell Further recommendations pending patient course Nurse practitioner note has been reviewed by physician. Signing provider agrees with the documented findings, assessment, and plan of care. Past Medical History Past Medical History: Cancer, Hypertension Additional Past Medical History / Comment(s): HX DIVERTICULITIS, TESTICULAR CANCER (2004), PALPITATIONS., HEMORRHOIDS. CELIAC ARTERY DISSECTION History of Any Multi-Drug Resistant Organisms: None Reported Past Surgical History: Hernia Repair Additional Past Surgical History / Comment(s): ORCHIECTOMY, HAND SURGERY, INGUINAL HERNIA AND UMBILICAL HERNIA. Past Anesthesia/Blood Transfusion Reactions: No Reported Reaction Past Psychological History: No Psychological Hx Reported Smoking Status: Never smoker Past Alcohol Use History: Rare Past Drug Use History: None Reported - Past Family History Mother Family Medical History: No Reported History Medications and Allergies Home Medications Medication Instructions Recorded Confirmed Type Aspirin [Adult Low Dose Aspirin EC] 81 mg PO DAILY 03/23/20 01/28/22 History Losartan Potassium [Cozaar] 100 mg PO HS 03/23/20 01/28/22 History Carvedilol [Coreg] 6.25 mg PO BID 01/28/22 01/28/22 History Cholecalciferol [Vitamin D3 (25 50 mcg PO DAILY 01/28/22 01/28/22 History Mcg = 1000 Iu)] Cinnamon Bark [Cinnamon] 1,000 mg PO BID 01/28/22 01/28/22 History Escitalopram [Lexapro] 5 mg PO HS 01/28/22 01/28/22 History Mupirocin 2% Oint [Bactroban 2% 1 applic NASAL BID PRN 01/28/22 01/28/22 History Oint] Omeprazole 40 mg PO DAILY 01/28/22 01/28/22 History QUEtiapine [SEROquel] 12.5 mg PO HS 01/28/22 01/28/22 History Spironolactone [Aldactone] 25 mg PO BID 01/28/22 01/28/22 History amLODIPine [Norvasc] 10 mg PO DAILY 01/28/22 01/28/22 History rOPINIRole HCL [Requip] 0.5 mg PO BID 01/28/22 01/28/22 History Allergies Allergy/AdvReac Type Severity Reaction Status Date / Time amoxicillin Allergy Unknown Unknown Verified 01/28/22 18:45 Sulfa (Sulfonamide Allergy Unknown Unknown Verified 01/28/22 18:45 Antibiotics) Physical Exam Vitals: Vital Signs Temp Pulse Pulse Resp BP BP Pulse Ox 01/29/22 08:00 98.0 F 65 18 134/76 97 01/29/22 04:00 98.1 F 63 18 116/72 96 01/29/22 02:00 72 18 01/29/22 00:00 98.0 F 72 18 114/64 96 01/28/22 21:00 74 18 137/89 96 01/28/22 19:05 98.3 F 64 18 112/57 95 01/28/22 19:00 62 16 144/95 97 01/28/22 16:03 81 18 128/79 96 01/28/22 14:19 97.9 F 95 18 114/76 95 Intake and Output 01/28/22 01/29/22 01/29/22 22:59 06:59 14:59 Intake Total 56.5 113.837 Balance 56.5 113.837 Intake: Intake, IV Titration 56.5 113.837 Amount Heparin Sod,Pork in 0.45% 56.5 113.837 NaCl 25,000 unit In 0.45 % NaCl 1 250ml.bag @ 8. 3193 UNITS/KG/HR 10 mls/ hr IV .Q24H [facility] Rx#: [id number] Other: Voiding Method Toilet Toilet # Voids 2 Weight 120.202 kg 118.8 kg Results 01/29/22 03:37 01/28/22 14:36 Cardiac Enzymes 01/28/22 01/28/22 01/28/22 Range/Units 14:36 14:36 20:34 AST 41 (17-59) U/L Troponin I 0.016 0.291 H* (0.000-0.034) ng/mL 01/29/22 Range/Units 00:02 AST (17-59) U/L Troponin I 0.260 H* (0.000-0.034) ng/mL Coagulation 01/28/22 01/29/22 01/29/22 Range/Units 14:36 03:37 11:06 PT 10.4 10.2 (9.0-12.0) sec APTT 24.2 30.2 H 40.0 H (22.0-30.0) sec Lipids 01/29/22 Range/Units 03:37 Triglycerides 339.00 H (0.00-149.00) mg/dL Cholesterol 159.00 (0.00-200.00) mg/dL HDL Cholesterol 30.10 L (40.00-60.00) mg/dL Cholesterol/HDL Ratio 5.28 Ratio CBC 01/28/22 01/29/22 Range/Units 14:36 03:37 WBC 5.5 6.0 (3.8-10.6) k/uL RBC 4.72 4.62 (4.30-5.90) m/uL Hgb 14.7 14.4 (13.0-17.5) gm/dL Hct 43.7 43.6 (39.0-53.0) % Plt Count 260 238 (150-450) k/uL Comprehensive Metabolic Panel 01/28/22 Range/Units 14:36 Sodium 139 (137-145) mmol/L Potassium 3.9 (3.5-5.1) mmol/L Chloride 106 (98-107) mmol/L Carbon Dioxide 23 (22-30) mmol/L BUN 17 (9-20) mg/dL Creatinine 1.08 (0.66-1.25) mg/dL Glucose 151 H (74-99) mg/dL Calcium 8.9 (8.4-10.2) mg/dL AST 41 (17-59) U/L ALT 54 H (4-49) U/L Alkaline Phosphatase 71 (38-126) U/L Total Protein 7.1 (6.3-8.2) g/dL Albumin 4.2 (3.5-5.0) g/dL Current Medications Generic Name Dose Route Start Last Admin Trade Name Freq PRN Reason Stop Dose Admin Alprazolam 0.25 mg 01/29/22 10:20 Alprazolam 0.25 Mg Tab PO Q6HR PRN Mild Anxiety Alprazolam 0.5 mg 01/29/22 10:20 Alprazolam 0.5 Mg Tab PO Q6HR PRN Moderate Anxiety Amlodipine Besylate 10 mg 01/29/22 09:00 01/29/22 08:40 Amlodipine 10 Mg Tab PO 10 mg DAILY JOHAN Administration Aspirin 81 mg 01/29/22 09:00 01/29/22 08:39 Aspirin 81 Mg PO 81 mg DAILY JOHAN Administration Aspirin 325 mg 01/30/22 05:00 Aspirin 325 Mg Tab PO 01/30/22 05:01 ONCE ONE Atorvastatin Calcium 40 mg 01/28/22 22:30 01/28/22 22:56 Atorvastatin 40 Mg Tab PO Not Given HS JOHAN Atorvastatin Calcium 80 mg 01/30/22 05:00 Atorvastatin 80 Mg Tab PO 01/30/22 05:01 ONCE ONE Carvedilol 6.25 mg 01/28/22 22:15 01/29/22 08:40 Carvedilol 6.25 Mg Tab PO 6.25 mg BID JOHAN Administration Escitalopram Oxalate 5 mg 01/28/22 22:15 01/28/22 22:55 Escitalopram 5 Mg Tab PO Not Given HS JOHAN Heparin Sodium (Porcine) 0 unit 01/28/22 22:04 01/29/22 12:50 Heparin Sodium 1,000 Un/Ml (10ml Vl) IV 2,950 unit PER PROTOCOL PRN Administration Low PTT Protocol Heparin Sodium/Sodium Chloride 250 mls @ 10 mls/hr 01/28/22 22:15 01/29/22 12:47 25,000 unit/ Sodium Chloride IV 13.319 units/kg/hr .Q24H JOHAN 16.01 mls/hr Administration Protocol 8.3193 UNITS/KG/HR Heparin Sodium (Porcine) 10, 1,001 mls @ 999 mls/hr 01/30/22 07:00 000 unit/ Sodium Chloride IRRIGATION 01/30/22 23:00 ONCE PRN INTRA-OP Heparin Sodium (Porcine) 2,500 250.5 mls @ 250 mls/hr 01/30/22 07:00 unit/ Sodium Chloride IRRIGATION 01/30/22 23:00 ONCE PRN INTRA-OP Sodium Chloride 1,000 ml/ IV 1,000 mls @ 118.8 mls/hr 01/29/22 23:00 Solution IV .Q8H26M JOHAN 1 ML/KG/HR Losartan Potassium 100 mg 01/28/22 22:15 01/28/22 22:55 Losartan 50 Mg Tab PO Not Given HS JOHAN Nitroglycerin 1 inch 01/29/22 00:00 01/29/22 12:51 Nitroglycerin Oint 1 Inch/Gm Packet TOPICAL Not Given Q6HR JOHAN Nitroglycerin 0.4 mg 01/29/22 10:20 Nitroglycerin Sl Tabs 0.4 Mg Tab SUBLINGUAL Q5M PRN Chest Pain Pantoprazole Sodium 40 mg 01/29/22 07:30 01/29/22 06:25 Pantoprazole 40 Mg Tablet PO 40 mg [id number] JOHAN Administration Quetiapine Fumarate 12.5 mg 01/28/22 22:15 01/28/22 22:47 Quetiapine 25 Mg Tab PO 12.5 mg HS JOHAN Administration Ropinirole HCl 0.5 mg 01/28/22 22:15 01/29/22 08:40 Ropinirole Hcl 0.25 Mg Tab PO 0.5 mg BID JOHAN Administration Spironolactone 25 mg 01/28/22 22:15 01/29/22 08:39 Spironolactone 25 Mg Tab PO 25 mg BID JOHAN Administration Intake and Output 01/28/22 01/29/22 01/29/22 22:59 06:59 14:59 Intake Total 56.5 113.837 Balance 56.5 113.837 Intake: Intake, IV Titration 56.5 113.837 Amount Heparin Sod,Pork in 0.45% 56.5 113.837 NaCl 25,000 unit In 0.45 % NaCl 1 250ml.bag @ 8. 3193 UNITS/KG/HR 10 mls/ hr IV .Q24H [facility] Rx#: [id number] Other: Voiding Method Toilet Toilet # Voids 2 Weight 120.202 kg 118.8 kg 01/29/22 03:37 01/28/22 14:36
--- NOTE | 2022-01-29 18:24 | P.PN ---
Subjective Progress Note Date: 01/29/22 Hospital course: Patient is a very pleasant 56-year-old male with a past medical history of hypertension on antihypertensive medications since the age of 20, hyperlipidemia, testicular cancer, dissection of celiac artery, diverticulitis, and frequent palpitations. He presented to the emergency department with the chief complaint of chest pain and pressure accompanied by a near syncopal episode in which patient reports feeling significant pressure across his chest almost as if he could not catch his breath accompanied by significant diaphoresis and palpitations. Patient reports the pain brought him down to his knees and he nearly passed out. Patient underwent full evaluation in the Emergency Department. He was initially found to have a negative troponin of 0.016 with repeat troponins elevating at 0.291 and 0.260. EKG was completed showing normal sinus rhythm at [address] thoracic aorta revealed redemonstration of celiac artery dissection extending from just past the ostium and extending 19 mm in length with mild fat stranding changes around seminal vesicles and prostate correlate for possible prostatitis and colonic diverticulosis. Chest x-ray showing questionable minimal infiltration in the left lower lobe otherwise showing no significant acute cardiopulmonary process. Physical exam: Patient seen and fully evaluated at bedside this morning. Patient was sitting comfortably and talking with . Patient appeared comfortable at this time. He reports complete cessation of previously experienced chest pain at this current time. Patient remains on heparin infusion at this time. Cardiology at bedside reports plans to take patient for cardiac cath tomorrow morning. Patient denied having any further questions or needs at this time. Vital signs reviewed and stable. General: Nontoxic, no distress and appears stated age. Derm: Skin warm and dry, normal coloration for ethnicity. Head: Atraumatic, normocephalic and symmetric. Eyes: EOMs intact, no lid lag, and anicteric sclera Mouth: no lip lesions, mucus membranes moist Cardiovascular: regular rate and rhythm with normal S1S2, no murmur, positive posterior tibial pulses bilaterally, and cap refill < 2 seconds. Lungs: Respirations even, regular, and unlabored on room air. Lungs CTA b ilaterally, no rhonchi, no rales, no wheezing, and no accessory muscle usage. Abdominal: soft, nontender to palpation, no guarding, no appreciable organomegaly Ext: ROM intact. No gross muscle atrophy, no edema, no contractures Neuro: Speech clear, face symmetrical and CN II-XII grossly intact with no noted focal neuro deficits Psych: Alert and oriented to person, place, time, and situation. Appropriate and pleasant affect. Assessment and Plan of Care: NSTEMI Near syncope Hypertension Hyperlipidemia and hypertriglyceridemia -Cardiology following, plans for patient to undergo cardiac cath tomorrow morning -Telemetry monitoring -Cardiac diet, NPO at midnight -Aspirin, atorvastatin, and metoprolol -Fenofibrate added to daily medication regimen secondary to elevated triglycerides of 339. -Echocardiogram CODE STATUS: Full code DVT prophylaxis: Heparin Discussed with: Patient and and RN Anticipated discharge date: Clinical course to determine Anticipated discharge place: Home A total of 39 minutes was spent on the care of this complex patient more than 50% of the time was spent in counseling and care coordination. Objective - Vital Signs Vital signs: Vital Signs Temp 98.1 F 01/29/22 04:00 Pulse 63 01/29/22 04:00 Resp 18 01/29/22 04:00 BP 116/72 01/29/22 04:00 Pulse Ox 96 01/29/22 04:00 Intake & Output 01/28/22 01/29/22 01/29/22 18:59 06:59 18:59 Intake Total 56.5 Balance 56.5 Weight 120.202 kg 118.8 kg Intake: Intake, IV Titration 56.5 Amount Heparin Sod,Pork in 0.45% 56.5 NaCl 25,000 unit In 0.45 % NaCl 1 250ml.bag @ 8. 3193 UNITS/KG/HR 10 mls/ hr IV .Q24H [facility] Rx#: [id number] Other: Voiding Method Toilet # Voids 2 - Labs CBC & Chem 7: 01/29/22 03:37 01/28/22 14:36 Labs: Abnormal Lab Results - Last 24 Hours (Table) 01/28/22 01/28/22 01/28/22 Range/Units 14:36 14:36 20:34 APTT (22.0-30.0) sec D-Dimer 1.22 H (<0.60) mg/L FEU Glucose 151 H (74-99) mg/dL ALT 54 H (4-49) U/L Troponin I 0.291 H* (0.000-0.034) ng/mL 01/29/22 01/29/22 Range/Units 00:02 03:37 APTT 30.2 H (22.0-30.0) sec D-Dimer (<0.60) mg/L FEU Glucose (74-99) mg/dL ALT (4-49) U/L Troponin I 0.260 H* (0.000-0.034) ng/mL
[2022-01-29] MEDS: ESCITALOPRAM 5 MG TAB PO SCH (21:09)
[2022-01-29] MEDS: LOSARTAN 50 MG TAB PO SCH (21:09)
[2022-01-29] MEDS: ATORVASTATIN 40 MG TAB PO SCH (21:09)
[2022-01-29] MEDS: QUEtiapine 25 MG TAB PO SCH (21:11)
[2022-01-29] MEDS: SODIUM CHLORIDE 0.9% 1,000 ML in EMPTY BAG 1 BAG IV SCH (21:54)
[2022-01-30] MEDS: NITROGLYCERIN OINT 1 INCH/GM PACKET TOPICAL SCH ×2 (00:55→06:28)
[2022-01-30 03:58] VITALS: TEMP 98
[2022-01-30] MEDS ORDERED: ASPIRIN 325 MG TAB PO ONE (05:00)
[2022-01-30] MEDS ORDERED: ATORVASTATIN 80 MG TAB PO ONE (05:00)
[2022-01-30 05:53] LABS: Glucose,Whole Blood 137 mg/dL (75-99)
[2022-01-30] MEDS: ASPIRIN 81 MG PO SCH (06:28)
[2022-01-30] MEDS: PANTOPRAZOLE 40 MG TABLET PO SCH (06:32)
[2022-01-30] MEDS: carvediloL 6.25 MG TAB PO SCH (06:32)
[2022-01-30] MEDS: SODIUM CHLORIDE 0.9% 1,000 ML in EMPTY BAG 1 BAG IV SCH (06:32)
[2022-01-30] MEDS: amLODIPine 10 MG TAB PO SCH (06:32)
[2022-01-30] MEDS ORDERED: HEPARIN SODIUM,PORCINE 10,000 UNIT in SODIUM CHLORIDE 0.9% 1,000 ML IRRIGATION PRN (07:00)
[2022-01-30] MEDS ORDERED: HEPARIN SODIUM,PORCINE 2,500 UNIT in SODIUM CHLORIDE 0.9% 250 ML IRRIGATION PRN (07:00)
[2022-01-30] MEDS: SPIRONOLACTONE 25 MG TAB PO SCH (07:50)
[2022-01-30] MEDS ORDERED: MIDAZOLAM 2 MG/2 ML VIAL IV ONE (08:11)
[2022-01-30] MEDS ORDERED: IV FLUID CONTINUATION 900 ML IV ONE (08:11)
[2022-01-30] MEDS ORDERED: LIDOCAINE 2% INJ 20 MG/ML SQ ONE (08:16)
[2022-01-30] MEDS ORDERED: VERAPAMIL SYRINGE (5 MG/10 ML) INTRAARTER ONE (08:18)
[2022-01-30] MEDS ORDERED: IOPAMIDOL-370 125ML BTL INJ ONE (08:26)
[2022-01-30] MEDS ORDERED: RX INFO: IV CONTRAST WAS GIVEN 1 EACH MISC MISCELLANE PRN (08:31)
--- NOTE | 2022-01-30 08:38 | P.PCN ---
Date of Procedure: 01/30/22 Operative Findings: CARDIAC CATHETERIZATION PERFORMING PHYSICIAN: Brannon Jacobsen MD, RPVI PROCEDURE PERFORMED: 1. Selective right and left coronary angiogram 2. Left heart catheterization INDICATION: Acute non-ST deviation myocardial infarction 62-year-old gentleman with hypertension who presented to the hospital with chest discomfort and near syncop e COMPLICATION: None APPROACH: Right radial artery LEVEL OF SEDATION: Moderate with a sedation length of 30 minutes PROCEDURE DESCRIPTION: After obtaining an informed consent, the patient was brought to cardiac computer lab para professional. Local anesthesia was performed using lidocaine subcutaneously. The right radial artery was cannulated using Seldinger technique, the guidewire passed easily, following that we advanced a 5-Cameroonian sheath dilator assembly, the wire and dilator were removed and sheath was flushed. Following that, 2 mg of verapamil along with 5000 unit heparin were given. Selective right and left coronary angiogram using a 6-Cam[place]onian JR4 and JL 3.5 catheters. Following that we did left heart catheterization using 6-Cameroonian pigtail catheter. The procedure was completed there was no complication. SELECTIVE CORONARY ANGIOGRAM: The right coronary artery: Is a large caliber vessel and a dominant vessel. The RCA is angiographically normal. Distally bifurcates into PDA and PLV branches. The PDA branch appears to be angiographically normal. The PLV branch has mild disease only Left main: Is angiographically normal. Bifurcates into LCx and LAD The left circumflex: Is a large caliber vessels and on dominant vessel. The LCx is angiographically normal. Gives rises into a large OM branch which appeared to be angiographically normal The left anterior descending artery: Is a large caliber vessel. The LAD is angiographically normal. Gives rises into a large diagonal branch which seems to be angiographically normal HEMODYNAMICS: The LVEDP was 10 mmHg without significant gradient across aortic valve CONCLUSION: 1. Mild nonobstructive coronary artery disease involving the right coronary artery 2. Normal left-sided filling pressures POSTPROCEDURE MANAGEMENT: #1 I with consider dual antiplatelet therapy giving the diagnosis of acute coronary syndrome #2 Follow-up with the patient
[2022-01-30] MEDS ORDERED: SODIUM CHLORIDE 0.9% 1,000 ML IV SCH (08:45)
[2022-01-30] MEDS ORDERED: FENOFIBRATE 160 MG TAB PO SCH (09:00)
--- NOTE | 2022-01-30 11:14 | P.DS ---
Providers Date of admission: 01/29/22 08:26 Expected date of discharge: 01/30/22 Attending physician: Jessica Chau DO Consults: 01/28/22 18:45 Consult Physician Urgent Consulting Provider: [facility] Consult Reason/Comments: Near syncope, chest pain Do you want consulting provider notified?: Yes Primary care physician: Maciel De Jesus Hospital Course: Discharge Diagnosis: NSTEMI, cardiac cath revealed mild nonobstructive coronary artery disease Near syncope, possible vasovagal response Hypertension Hyperlipidemia and hypertriglyceridemia Hospital Course: Patient is a very pleasant 56-year-old male with a past medical history of hypertension on antihypertensive medications since the age of 20, hyperlipidemia, testicular cancer, dissection of celiac artery, diverticulitis, and frequent palpitations. He presented to the emergency department with the chief complaint of chest pain and pressure accompanied by a near syncopal episode in which patient reports feeling significant pressure across his chest almost as if he could not catch his breath accompanied by significant diaphoresis and palpitations. Patient reports the pain brought him down to his knees and he nearly passed out. Patient underwent full evaluation in the Emergency Department. He was initially found to have a negative troponin of 0.016 with repeat troponins elevating at 0.291 and 0.260. EKG was completed showing normal sinus rhythm at [address] thoracic aorta revealed redemonstration of celiac artery dissection extending from just past the ostium and extending 19 mm in length with mild fat stranding changes around seminal vesicles and prostate correlate for possible prostatitis and colonic diverticulosis. Chest x-ray showing questionable minimal infiltration in the left lower lobe otherwise showing no significant acute cardiopulmonary process. Patient underwent cardiac catheterization which revealed mild nonobstructive coronary artery disease involving the right coronary artery with normal left- sided filling pressures. Cardiology clearing patient for discharge recommending medication management. Lipid profile revealed elevated triglycerides of 339, elevated VLDL is 67.8 and HDL of 30.10. Patient started on fenofibrate and atorvastatin increased to 40 mg nightly. Patient is free from any reports of chest pain, shortness of breath, dizziness, lightheadedness, or experiencing any numbness/tingling/weakness in his extremities. Patient is medically stable for discharge at this time all questions answered for patient and family and they denied any further questions or concerns at this time patient medically stable and to follow up outpatient with PCP and cardiology as recommended. Physical exam: Vital signs reviewed and stable. General: Nontoxic, no distress and appears stated age. Derm: Skin warm and dry, normal coloration for ethnicity. Head: Atraumatic, normocephalic and symmetric. Eyes: EOMs intact, no lid lag, and anicteric sclera Mouth: no lip lesions, mucus membranes moist Cardiovascular: regular rate and rhythm with normal S1S2, no murmur, positive posterior tibial pulses bilaterally, and cap refill < 2 seconds. Lungs: Respirations even, regular, and unlabored on room air. Lungs CTA bilaterally, no rhonchi, no rales, no wheezing, and no accessory muscle usage. Abdominal: soft, nontender to palpation, no guarding, no appreciable organomegaly Ext: ROM intact. No gross muscle atrophy, no edema, no contractures Neuro: Speech clear, face symmetrical and CN II-XII grossly intact with no noted focal neuro deficits Psych: Alert and oriented to person, place, time, and situation. Appropriate and pleasant affect. A total of 39 minutes of time were spent preparing this complex discharge summary. Pt was discharged on 01/30/22 at 11:12 AM Patient Condition at Discharge: Stable Plan - Discharge Summary Discharge Rx Participant: No New Discharge Prescriptions: New Fenofibrate [Lofibra] 160 mg PO DAILY 30 Days #30 tab Atorvastatin [Lipitor] 40 mg PO HS 30 Days #30 tab Continue Aspirin [Adult Low Dose Aspirin EC] 81 mg PO DAILY Losartan Potassium [Cozaar] 100 mg PO HS Spironolactone [Aldactone] 25 mg PO BID Mupirocin 2% Oint [Bactroban 2% Oint] 1 applic NASAL BID PRN PRN Reason: STAFF INFECTION Cinnamon Bark [Cinnamon] 1,000 mg PO BID Carvedilol [Coreg] 6.25 mg PO BID amLODIPine [Norvasc] 10 mg PO DAILY rOPINIRole HCL [Requip] 0.5 mg PO BID Omeprazole 40 mg PO DAILY QUEtiapine [SEROquel] 12.5 mg PO HS Cholecalciferol [Vitamin D3 (25 Mcg = 1000 Iu)] 50 mcg PO DAILY Escitalopram [Lexapro] 5 mg PO HS Discharge Medication List Aspirin [Adult Low Dose Aspirin EC] 81 mg PO DAILY 03/23/20 [History] Losartan Potassium [Cozaar] 100 mg PO HS 06/11/20 [History] Carvedilol [Coreg] 6.25 mg PO BID 01/28/22 [History] Cholecalciferol [Vitamin D3 (25 Mcg = 1000 Iu)] 50 mcg PO DAILY 01/28/22 [History] Cinnamon Bark [Cinnamon] 1,000 mg PO BID 01/28/22 [History] Escitalopram [Lexapro] 5 mg PO HS 01/28/22 [History] Mupirocin 2% Oint [Bactroban 2% Oint] 1 applic NASAL BID PRN 01/28/22 [History] Omeprazole 40 mg PO DAILY 01/28/22 [History] QUEtiapine [SEROquel] 12.5 mg PO HS 01/28/22 [History] Spironolactone [Aldactone] 25 mg PO BID 01/28/22 [History] amLODIPine [Norvasc] 10 mg PO DAILY 01/28/22 [History] rOPINIRole HCL [Requip] 0.5 mg PO BID 01/28/22 [History] Atorvastatin [Lipitor] 40 mg PO HS 30 Days #30 tab 01/30/22 [Rx] Fenofibrate [Lofibra] 160 mg PO DAILY 30 Days #30 tab 01/30/22 [Rx] Follow up Appointment(s)/Referral(s): Brannon Jacobsen MD [STAFF PHYSICIAN] - 02/21/22 11:30 am (Please call to change appointment time if you cannot make it work. Appointment availability is very limited.) Maciel De Jesus MD [Primary Care Provider] - 02/04/22 7:00 pm Patient Instructions/Handouts: *[facility] - After Heart Catheterization - Him Assistant Instructions Activity/Diet/Wound Care/Special Instructions: Activity: As tolerated. Take breaks as needed. Diet: Heart healthy and carb consistent diet. Avoid salts, or foods with hidden salts such as canned or boxed foods and frozen dinners. Extra salt makes your heart work harder and traps the fluid in your body for longer. Special Instructions: Take all of your medications as directed and remember to keep all of your doctor's appointments and follow-up as needed. Thank you for allowing us to participate in your care, it was truly a pleasure having you for our patient!!! Discharge Disposition: HOME SELF-CARE
[2022-01-30 16:06] VITALS: BP 130/78; PULSE 74
== END 2022-01-30 16:21 | disposition home or self-care (01) | DRG 280 ==
LOC: EC 14:14 → 6NMEDSUR 18:45 → 3SCARD 21:39 → OBSVTOIN 01-29 08:26
PROVIDERS: ADMIT Internal Medicine; ATTEND Internal Medicine
PROC: B2111ZZ Fluoroscopy of Multiple Coronary Arteries using Low Osmolar Contrast (ICD-10-PCS; principal; 2022-01-30 15:00)
PROC: 4A023N7 Measurement of Cardiac Sampling and Pressure, Left Heart, Percutaneous Approach (ICD-10-PCS; principal; 2022-01-30 15:00)
DX: I21.4 Non-ST elevation (NSTEMI) myocardial infarction (principal); I77.79 Dissection of other specified artery; I25.10 Atherosclerotic heart disease of native coronary artery without angina pectoris; R55 Syncope and collapse; I10 Essential (primary) hypertension; E78.1 Pure hyperglyceridemia; E78.5 Hyperlipidemia, unspecified; G47.30 Sleep apnea, unspecified; K57.30 Diverticulosis of large intestine without perforation or abscess without bleeding; E06.3 Autoimmune thyroiditis; N41.9 Inflammatory disease of prostate, unspecified; K64.9 Unspecified hemorrhoids; E66.9 Obesity, unspecified; Z68.31 Body mass index [BMI] 31.0-31.9, adult; R73.03 Prediabetes; Z79.82 Long term (current) use of aspirin; Z79.899 Other long term (current) drug therapy; Z85.47 Personal history of malignant neoplasm of testis; Z87.19 Personal history of other diseases of the digestive system; Z90.79 Acquired absence of other genital organ(s); Z98.890 Other specified postprocedural states; Z88.0 Allergy status to penicillin; Z88.2 Allergy status to sulfonamides; Z82.49 Family history of ischemic heart disease and other diseases of the circulatory system
CPT/HCPCS: 36415; 71046; 71275; 74174; 80053; 80061; 83036; 83735; 84443; 84484; 85025; 85379; 85610; 85730; 93005; 93458; 99285

== ENCOUNTER → 2022-11-15 | Outpatient (CLI) | payer OTHER ==
[2022-11-15 18:32] LABS: Basophils # (A) 0.06 X 10*3/uL (0.00-0.10); Eosinophils # (A) 0.28 X 10*3/uL (0.04-0.35); Eosinophils % (A) 4.8 %; HCT 41.5 % (39.6-50.0); HGB 14.3 g/dL (13.0-17.0); Immature Grans, Automated 0.2 %; Lymphocytes # (A) 1.63 X 10*3/uL (0.90-5.00); MCH 31.2 pg (27.0-32.0); MCHC 34.5 g/dL (32.0-37.0); MCV 90.6 fL (80.0-97.0); Mean Platelet Volume 9.2 fL (9.5-12.2); Monocytes # (A) 0.73 X 10*3/uL (0.20-1.00); Monocytes % (A) 12.5 %; NRBC Per 100 WBC 0 /100 WBCS (0.0-0.0); Neutrophils # (A) 3.12 X 10*3/uL (1.80-7.70); Neutrophils % (A) 53.5 %; Platelet Count 226 X 10*3/uL (140-440); RBC 4.58 X 10*6/uL (4.40-5.60); RDW 11.9 % (11.5-14.5); WBC 5.83 X 10*3/uL (4.50-10.00)
[2022-11-15 18:52] LABS: ALT 69 U/L (10-49); AST 40 U/L (14-35); African American GFR (CKD) 107.3 (60.0-200.0); Albumin 4.4 g/dL (3.8-4.9); Albumin/Globulin Ratio 1.88 (1.60-3.17); Alkaline Phosphatase 76 U/L (41-126); BUN/Creat Ratio 17.71 Ratio (12.00-20.00); Blood Urea Nitrogen 16.4 mg/dL (9.0-27.0); Calcium 9.3 mg/dL (8.7-10.3); Carbon Dioxide 26.3 mmol/L (20.0-27.5); Chloride 104 mmol/L (96-109); Chol/HDL Ratio 6.04 Ratio; Creatine Kinase 123 U/L (35-257); Globulin 2.3 g/dL (1.6-3.3); Glucose 130 mg/dL (70-110); LDL Cholesterol,Calculated 133.3 mg/dL (0.0-131.0); Non-African American GFR(CKD) 92.6 (60.0-200.0); Sodium 143 mmol/L (135-145); Total Protein 6.8 g/dL (6.2-8.2)
== END | disposition home or self-care (01) ==
LOC: LABWHC1 12:20
PROVIDERS: ATTEND Family Medicine
DX: Z12.5 Encounter for screening for malignant neoplasm of prostate (principal); Z13.1 Encounter for screening for diabetes mellitus; Z13.220 Encounter for screening for lipoid disorders; I10 Essential (primary) hypertension; E03.9 Hypothyroidism, unspecified
CPT/HCPCS: 36415; 80053; 80061; 82550; 83036; 84153; 84439; 84443; 84481; 85025; 86140

== ENCOUNTER 2023-06-16 11:20 | Emergency (ER) | payer OTHER ==
[2023-06-16 11:25] VITALS: PULSE 72; RESP 18
--- NOTE | 2023-06-16 11:49 | ED ---
Upper Extremity HPI - General Chief Complaint: Fall Stated Complaint: fell off ladder L shoulder injury Time Seen by Provider: 06/16/23 11:31 Source: patient, RN notes reviewed Mode of arrival: ambulatory Limitations: no limitations - History of Present Illness Initial Comments: This is a 58-year-old male who presents to the emergency department for a left arm injury. Patient was working on a roof, and fell off of a six-foot ladder. He tried to grab a 2 x 4 with his left arm to prevent himself from falling, and subsequently felt a tear in the left biceps area. He has since had increasing pain to this area, along with the elbow and down into the wrist. Denies hitting his head or sustaining any other injuries. Denies any fevers, chills, sore throat, cough, dyspnea, chest pain, palpitations, abdominal pain, nausea, vomiting, diarrhea, back pain, or headaches. MD Complaint: Injury to:: left - Related Data Home Medications Medication Instructions Recorded Confirmed Aspirin [Adult Low Dose Aspirin EC] 81 mg PO DAILY 03/23/20 01/28/22 Losartan Potassium [Cozaar] 100 mg PO HS 03/23/20 01/28/22 Cholecalciferol [Vitamin D3 (25 50 mcg PO DAILY 01/28/22 01/28/22 Mcg = 1000 Iu)] Cinnamon Bark [Cinnamon] 1,000 mg PO BID 01/28/22 01/28/22 Escitalopram [Lexapro] 5 mg PO HS 01/28/22 01/28/22 Mupirocin 2% Oint [Bactroban 2% 1 applic NASAL BID PRN 01/28/22 01/28/22 Oint] Omeprazole 40 mg PO DAILY 01/28/22 01/28/22 QUEtiapine [SEROquel] 12.5 mg PO HS 01/28/22 01/28/22 Spironolactone [Aldactone] 25 mg PO BID 01/28/22 01/28/22 amLODIPine [Norvasc] 10 mg PO DAILY 01/28/22 01/28/22 carvediloL [Coreg] 6.25 mg PO BID 01/28/22 01/28/22 rOPINIRole HCL [Requip] 0.5 mg PO BID 01/28/22 01/28/22 Previous Rx's Medication Instructions Recorded Atorvastatin [Lipitor] 40 mg PO HS 30 Days #30 tab 01/30/22 Fenofibrate [Lofibra] 160 mg PO DAILY 30 Days #30 tab 01/30/22 Ibuprofen [Motrin] 800 mg PO Q8H PRN #30 tab 06/16/23 Allergies Allergy/AdvReac Type Severity Reaction Status Date / Time amoxicillin Allergy Unknown Unknown Verified 06/16/23 11:25 Sulfa (Sulfonamide Allergy Unknown Unknown Verified 06/16/23 11:25 Antibiotics) Review of Systems ROS Statement: Those systems with pertinent positive or pertinent negative responses have been documented in the HPI. ROS Other: All systems not noted in ROS Statement are negative. Past Medical History Past Medical History: Cancer, Hypertension Additional Past Medical History / Comment(s): HX DIVERTICULITIS, TESTICULAR CANCER (2004), PALPITATIONS., HEMORRHOIDS. CELIAC ARTERY DISSECTION History of Any Multi-Drug Resistant Organisms: None Reported Past Surgical History: Hernia Repair Additional Past Surgical History / Comment(s): ORCHIECTOMY, HAND SURGERY, INGUINAL HERNIA AND UMBILICAL HERNIA. Past Anesthesia/Blood Transfusion Reactions: No Reported Reaction Past Psychological History: No Psychological Hx Reported Smoking Status: Never smoker Past Alcohol Use History: Rare Past Drug Use History: None Reported - Past Family History Mother Family Medical History: No Reported History General Exam Limitations: no limitations General appearance: alert, in no apparent distress Head exam: Present: atraumatic, normocephalic, normal inspection Respiratory exam: Present: normal lung sounds bilaterally. Absent: respiratory distress, wheezes, rales, rhonchi, stridor Cardiovascular Exam: Present: regular rate, normal rhythm, normal heart sounds. Absent: systolic murmur, diastolic murmur, rubs, gallop, clicks Extremities exam: Present: other (Tenderness to palpation over the left biceps area. Limited ROM secondary to pain. 2+ radial pulses.) Neurological exam: Present: alert, oriented X3, CN II-XII intact Psychiatric exam: Present: normal affect, normal mood Skin exam: Present: warm, dry, intact, normal color. Absent: rash Course Vital Signs 06/16/23 06/16/23 11:21 13:10 Temperature 98 F 98.0 F Pulse Rate 72 72 Respiratory 18 18 Rate Blood Pressure 123/77 125/85 O2 Sat by Pulse 98 98 Oximetry Medical Decision Making - Medical Decision Making This is a 58-year-old male who presents to the emergency department for a left arm injury. Was pt. sent in by a medical professional or institution? @ -No Did you speak to anyone other than the patient for history? @ -No Did you review nursing and triage notes? @ -Yes, and I agree, it is accurate with regards to the patient's symptoms. Were old charts reviewed? @ -No Differential Diagnosis? @ -Different arm pain: Fracture, dislocation, contusion, sprain, this is not meant to be an all- inclusive list. EKG interpreted by me (3pts min.)? @ -Not obtained X-rays interpreted by me (1pt min.)? @ -X-ray of the left humerus, forearm, and wrist obtained. My interpretation identifies no acute fractures. CT interpreted by me (1pt min.)? @ -Not obtained U/S interpreted by me (1pt. min.)? @ -Not obtained What testing was considered but not performed? (CT, X-rays, U/S, labs)? Why? @ -None What meds were considered but not given? Why? @ -None Did you discuss the management of the patient with other professionals? @ -No Did you reconcile home meds? @ -No Was smoking cessation discussed for >3mins.? @ -No Was critical care preformed (if so, how long)? @ -No Were there social determinants of health that impacted care today? How? (Homelessness, low income, unemployed, alcoholism, drug addiction, transportation, low edu. Level, literacy, decrease access to med. care, [facility], rehab)? @ -No Was there de-escalation of care discussed even if they declined? (Discuss DNR or withdrawal of care, Hospice)? @ -No What co-morbidities impacted this encounter? (DM, HTN, Smoking, COPD, CAD, Cancer, CVA, Hep., AIDS, mental health diagnosis, sleep apnea, morbid obesity)? @ -None Was patient admitted / discharged? @ -Discharged. X-ray of the left humerus, forearm, and wrist obtained revealing no acute fractures or other abnormalities. Patient denied the need for pain medication in the emergency department. Advised that negative x-rays do not rule out the possibility of damage to other structures in the arm such as muscles or tendons. He is advised to apply ice for 15-20 minutes every 2-3 hours, alternate with ibuprofen and Tylenol, and rest the arm as well. Prescription for ibuprofen provided with dosing instructions reviewed. He was also given information for orthopedic follow-up in the event symptoms do not improve. Undiagnosed new problem with uncertain prognosis? @ -None Drug Therapy requiring intensive monitoring for toxicity (Heparin, Nitro, Insulin, Cardizem)? @ -None Were any procedures done? @ -None Diagnosis/symptom? @ -Left arm pain Acute, or Chronic, or Acute on Chronic? @ -Acute Uncomplicated (without systemic symptoms) or Complicated (systemic symptoms)? @ -Uncomplicated Side effects of treatment? @ -None Exacerbation, Progression, or Severe Exacerbation] @ -Not applicable Poses a threat to life or bodily function? @ -This may impact his ability to use the left upper extremity for the mean time. Return precautions reviewed in depth, the patient is instructed to return to the emergency department with any new, worsening, or concerning symptoms. Patient verbalized understanding. This case was discussed in detail with the attending ED physician, Dr. Polk. Presentation, findings, and treatment plan discussed in detail as well. - Radiology Data Radiology results: report reviewed, image reviewed Disposition Clinical Impression: Fall, Left arm pain Disposition: HOME SELF-CARE Instructions (If sedation given, give patient instructions): Arm Pain (ED) Additional Instructions: Return to the emergency department with any new, worsening, or concerning symptoms. Alternate with ibuprofen and Tylenol as needed for pain relief. Apply ice for 15-20 minutes every 2-3 hours. Make sure you are resting avoid any strenuous activity with that arm. Contact orthopedics as listed below tomorrow morning for a follow-up appointment and further evaluation. Follow up with your primary care provider in 1-2 days. Prescriptions: Ibuprofen [Motrin] 800 mg PO Q8H PRN #30 tab PRN Reason: Pain Is patient prescribed a controlled substance at d/c from ED?: No Referrals: Maciel De Jesus MD [Primary Care Provider] - 1-2 days Marilu Morocho DO [Doctor of Osteopathic Medicine] - 1-2 days
--- NOTE | 2023-06-16 12:21 | XR ---
EXAMINATION TYPE: XR humerus LT, XR forearm LT, XR wrist complete LT DATE OF EXAM: 06/16/2023 11:54 AM INDICATION: Patient age:Male; 58 years old; Reason for study: Pain after injury; COMPARISON: None TECHNIQUE: The left humerus and forearm or examined in frontal and lateral projections. Left wrist was evaluated in frontal, lateral, oblique and navicular projections. FINDINGS: No evidence of acute osseous pathology, joint dislocation, or soft tissue swelling. The rem aining portions of the visualized chest are unremarkable. Mild degeneration changes of the left shoul marissa particularly the common clavicular joint. IMPRESSION: No acute osseous pathology.
[2023-06-16] MEDS ORDERED: ACET/COD 300 MG/30 MG STARTER PACK 6 TAB BTL PO STA (12:51)
[2023-06-16] MEDS ORDERED: IBUPROFEN 600 MG STARTER PACK 4 TAB BTL PO STA (12:51)
[2023-06-16 13:12] VITALS: BP 125/85; TEMP 98
== END 2023-06-16 13:12 | disposition home or self-care (01) ==
LOC: EC 11:20
DX: M79.622 Pain in left upper arm (principal); I10 Essential (primary) hypertension; Z88.0 Allergy status to penicillin; Z88.2 Allergy status to sulfonamides; Z79.82 Long term (current) use of aspirin; Z79.899 Other long term (current) drug therapy; W11.XXXA Fall on and from ladder, initial encounter
CPT/HCPCS: 99284

== ENCOUNTER → 2023-06-25 | Outpatient (CLI) | payer OTHER ==
--- NOTE | 2023-06-26 09:25 | MR ---
EXAMINATION TYPE: MR elbow LT wo con DATE OF EXAM: 06/25/2023 COMPARISON: Radiograph 06/16/2023 HISTORY: 58-year-old male S46.212, history of muscle strain, Left elbow pain, S/P injury. TECHNIQUE: Multiplanar, multisequence images of the left elbow were obtained without IV contrast. FINDINGS: Extensive generalized subcutaneous soft tissue swelling. There is distal biceps tendon rupture with extensive associated edema and hemorrhage. The disorganize d involving the retracted tendon stump is located at the level of the elbow joint line, retracted by approximately 6.0 to 6.5 cm from the radial tuberosity insertion. Contiguous prominent edema tracking along the anteromedial aspect of the forearm. There is more severe edema with associated fluid collection or hematoma extending beyond the field at the level of the bicipital myotendinous junction measuring up to 4.2 cm wide and 2.8 cm AP extending up beyond the [id number]. The triceps insertion is intact. Physiologic elbow joint fluid. No acute or healing fracture is seen. The radiocapitellar and ulnotro chlear joints appear intact. Some intermediate signal in both common flexor tendon and common extensor tendon origins. Underlying LCL and MCL appear intact. Normal appearance to the ulnar nerve along the sulcus ulnaris. IMPRESSION: 1. Acute DBT rupture with extensive associated edema and hemorrhage. The retracted stump is located a t the level of the elbow joint line, 6.0 to 6.5 cm proximal to the radial tuberosity insertion. Large fluid collection/hematoma extending up into the arm, outside the field of view measuring 4.2 cm wide by 2.8 cm AP along the biceps myotendinous junction. 2. Given the prominent contiguous edema extending along the anteromedial aspect of the forearm, corre sponding tear of the lacertus fibrosis is not excluded. 3. Mild common flexor and common extensor origin tendinosis.
== END | disposition home or self-care (01) ==
LOC: RADMRIMAIN 05:56
PROVIDERS: ATTEND Orthopaedic Surgery Hand Surgery
DX: S46.212A Strain of muscle, fascia and tendon of other parts of biceps, left arm, initial encounter (principal); M25.522 Pain in left elbow; R60.0 Localized edema